=== PATIENT | male | born 1995 | race Caucasian/White ===

== ENCOUNTER 2018-08-05 07:17 | Emergency (ER) | payer BC ==
--- NOTE | 2018-08-05 07:30 | EDM.PDOC ---
ED HPI GENERAL MEDICAL PROBLEM - General Chief Complaint: Lower Extremity Injury/Pain Stated Complaint: BROKE ANKLE? Time Seen by Provider: 08/05/18 07:29 Source of Information: Reports: Patient, Family, RN, RN Notes Reviewed History Limitations: Reports: No Limitations - History of Present Illness INITIAL COMMENTS - FREE TEXT/NARRATIVE: Pt to ER with c/o left ankle pain. States he stepped off a four yang and rolled the left ankle. Patient states he heard a "pop" and had excruciating pain. States he has never injured the ankle in the past. Onset: Today, Sudden Onset Date: 08/05/18 Duration: Constant Location: Reports: Lower Extremity, Left Quality: Reports: Ache, Sharp, Stabbing, Throbbing Severity: Severe Improves with: Reports: None Worsens with: Reports: None Associated Symptoms: Reports: No Other Symptoms Left Ankle Pain Score (Numeric/FACES): 6 - Related Data Allergies Allergy/AdvReac Type Severity Reaction Status Date / Time No Known Allergies Allergy Verified 08/05/18 07:24 Home Meds: Home Meds . [No Known Home Meds] 08/05/18 [History] Past Medical History - Past Health History Medical/Surgical History: Denies Medical/Surgical History HEENT History: Reports: None Cardiovascular History: Reports: None Respiratory History: Reports: None Gastrointestinal History: Reports: None Genitourinary History: Reports: None Musculoskeletal History: Reports: None Neurological History: Reports: None Psychiatric History: Reports: None Endocrine/Metabolic History: Reports: None Hematologic History: Reports: None Immunologic History: Reports: None Oncologic (Cancer) History: Reports: None Dermatologic History: Reports: None - Infectious Disease History Infectious Disease History: Reports: None - Past Surgical History Head Surgeries/Procedures: Reports: None HEENT Surgical History: Reports: Oral Surgery Social & Family History - Family History Family Medical History: Noncontributory - Tobacco Use Smoking Status *Q: Never Smoker Second Hand Smoke Exposure: No - Caffeine Use Caffeine Use: Reports: Coffee, Soda Review of Systems - Review of Systems Review Of Systems: ROS reveals no pertinent complaints other than HPI. ED EXAM, GENERAL - Physical Exam Exam: See Below Exam Limited By: No Limitations General Appearance: Alert, WD/WN, Moderate Distress Eye Exam: Bilateral Eye: EOMI, Normal Inspection Ears: Normal External Exam, Hearing Grossly Normal Nose: Normal Inspection Throat/Mouth: Normal Inspection, Normal Voice, No Airway Compromise Head: Atraumatic, Normocephalic Neck: Normal Inspection, Supple, Non-Tender, Full Range of Motion Respiratory/Chest: No Respiratory Distress, Lungs Clear, Normal Breath Sounds, No Accessory Muscle Use, Chest Non-Tender Cardiovascular: Normal Peripheral Pulses, Regular Rate, Rhythm, No Edema, No Gallop, No JVD, No Murmur, No Rub Peripheral Pulses: 2+: Dorsalis Pedis (L), Dorsalis Pedis (R) GI/Abdominal: Normal Bowel Sounds, Soft, Non-Tender, No Distention (Male) Exam: Deferred Rectal (Males) Exam: Deferred Back Exam: Normal Inspection, Full Range of Motion, NT Extremities: Joint Swelling (left ankle), Limited Range of Motion (left ankle) Neurological: Alert, Oriented, CN II-XII Intact, Normal Cognition, Normal Reflexes, No Motor/Sensory Deficits Psychiatric: Normal Affect, Anxious Skin Exam: Warm, Dry, Intact, Normal Color, No Rash Lymphatic: No Adenopathy Course - Vital Signs Last Recorded V/S: Last Vital Signs Temp 98.0 F 08/05/18 07:25 Pulse 88 08/05/18 07:25 Resp 18 08/05/18 07:25 BP 134/86 08/05/18 07:25 Pulse Ox 100 08/05/18 07:25 - Radiology Interpretation Free Text/Narrative:: Left ankle xray: Severe sprain Tiny avulsion (age?) fragment anteriorly distal left tibia. See rad report Departure - Departure Time of Disposition: 08:13 Disposition: Home, Self-Care 01 Condition: Fair Clinical Impression: Sprain and strain of ankle - Discharge Information *PRESCRIPTION DRUG MONITORING PROGRAM REVIEWED*: No *COPY OF PRESCRIPTION DRUG MONITORING REPORT IN PATIENT KATHE: No Instructions: How to Use a Stirrup Ankle Brace, [id number], Ankle Sprain, [id number] Forms: ED Department Discharge Additional Instructions: Rest, Elevate, Ice as often as possible Wear brace when up and around May use Tylenol and/or Ibuprofen as directed for pain Follow up with your primary care facility
--- NOTE | 2018-08-05 08:02 | CR ---
Clinical history 22-year-old male who rolled his ankle and heard a "pop". Interpretation: (3 views left ankle) Soft tissue swelling over the lateral malleolus and small underlying ankle joint effusion. *Tiny bone fragment which appears to be a avulsed anteriorly off the distal tibia (no previous films immediately available for comparison). Age of this fracture uncertain. Point tenderness? Tibiotalar mortise joint symmetrically intact. No sign of other fracture or dislocation left ankle. CONCLUSION: Severe sprain. Tiny avulsion (age?) fragment anteriorly distal left tibia.
== END 2018-08-05 08:18 | disposition home or self-care (01) ==
LOC: DL.ED 07:17
DX: S93.402A Sprain of unspecified ligament of left ankle, initial encounter (principal); X50.1XXA Overexertion from prolonged static or awkward postures, initial encounter
CPT/HCPCS: 73610-LT; 99283-25

== ENCOUNTER 2024-11-27 18:57 | Emergency (ER) | payer BC ==
[2024-11-27] MEDS: Lidocaine/EPINEPHrine/Tetracaine Soln 5 ML Each TOP ONE (19:23)
[2024-11-27] MEDS: Diphtheria,Pertussis(Acell),Tetanus Vaccine 0.5 ML Syringe IM ONE (19:26)
== END 2024-11-27 19:50 | disposition home or self-care (01) ==
LOC: DL.ED 18:57
DX: S61.012A Laceration without foreign body of left thumb without damage to nail, initial encounter (principal); Z23 Encounter for immunization; W26.0XXA Contact with knife, initial encounter; Y93.89 Activity, other specified
CPT/HCPCS: 90471; 90715; 99282; A9270